=== PATIENT | male | born 1990 | race African-American/Black ===

== ENCOUNTER → 2018-11-11 | Emergency (ER) | payer SELFPAY ==
[~2018-11-11] VITALS: Ht 170.2 cm; Wt 68.0 kg
[~2018-11-11] MED LIST: KETOROLAC TROMETH 60MG/2ML VIAL IM ONE; TETANUS-DIPTH-ACEL PERTUSSIS 0.5ML SYRG IM ONE
[2018-11-11 00:33] VITALS: BP 126/64
== END | disposition home or self-care (01) ==
LOC: ER 00:13
DX: S61.411A Laceration without foreign body of right hand, initial encounter (principal); X58.XXXA Exposure to other specified factors, initial encounter; Y93.89 Activity, other specified; Y99.8 Other external cause status; Y92.89 Other specified places as the place of occurrence of the external cause
CPT/HCPCS: 73140; 73660; 90471; 90715; 96372; 99283; J1885